=== PATIENT | female | born 1935 | race Caucasian/White ===

== ENCOUNTER 2019-12-21 13:37 | Emergency (ER) | payer MEDICARE, OTHER ==
[~2019-12-21] VITALS: Ht 157.5 cm; Wt 68.9 kg
[~2019-12-21 13:37] MED LIST: AMYL1CAP56 PO; ASPI-495 PO; BIMA2.5D5; CLON0.5T23 PO; FOLI1TAB94 PO; LISI-603 PO; LOSA1TAB39 PO; METO-357 PO; OMEP20CA15 PO; PRED25PO13 PO
--- NOTE | 2019-12-21 13:52 | NUR ---
BIBFAMILY FROM HOME TO ER BED 7. AAOX4. NOT IN RESP DISTRESS. BREATHING EVEN AND UNLABORED. AMBULATORY W/ ASSIST. CAME IN FOR BILAT LEG SWELLING. PT SPEAKS IN [place] WITH GRANDSON AT BEDSIDE FOR TRANSLATE. PT WAS REPORTED TO BE HAVING THE LEG SWELLING FOR 1-2 MONTHS. NOTED SWELLING, REDNESS AND WAS TO TOUCH. PAIN IS INTERMITENT AND NOT PRESENT AT THE TIME OF ASSESSMENT. MD MADE AWARE. AWAITNG FOR EVAL. PT PLACED ON MONITOR
[2019-12-21] MEDS ORDERED: ACETAMINOPHEN 325 MG TABLET PO ONE (15:00)
[2019-12-21] MEDS ORDERED: ACETAMINOPHEN 325 MG TABLET ONE (15:09)
--- NOTE | 2019-12-21 15:11 | NUR ---
XRAY AT BEDSIDE
--- NOTE | 2019-12-21 17:20 | NUR ---
Patient discharged to home in stable condition. Written and verbal after care instructions given. Patient verbalizes understanding of instruction.IV removed. Catheter intact and site benign. Pressure and 4x4 applied to site. No bleeding noted. Pt ambulatory with an aide of a cane w/ assist by the grandson.
[2019-12-21 17:22] VITALS: BP 108/52
== END 2019-12-21 17:22 | disposition home or self-care (01) ==
LOC: ER 13:43
DX: L03.116 Cellulitis of left lower limb (principal); L03.115 Cellulitis of right lower limb; I10 Essential (primary) hypertension; F41.9 Anxiety disorder, unspecified; E11.9 Type 2 diabetes mellitus without complications; Z79.82 Long term (current) use of aspirin; Z79.899 Other long term (current) drug therapy
CPT/HCPCS: 73630-TC; 93970-TC

== ENCOUNTER 2021-02-14 04:49 | Emergency (ER) | payer MEDICARE, OTHER ==
[~2021-02-14] VITALS: Ht 152.4 cm; Wt 73.9 kg
[~2021-02-14 04:49] MED LIST changes: -LISI-603 PO; +LISI20TA30 PO
--- NOTE | 2021-02-14 05:05 | NUR ---
PATIENT BIB DAUGHTER WITH C/O RIGHT HAND PAIN DUE TO S/P FALL THREE DAYS AGO. PATINET IS A/O X 4, RR EVEN AND UNLABORED, NO SOB NOTED. PATIENT CONNECTED TO MONITOR.
--- NOTE | 2021-02-14 05:21 | NUR ---
RAD AT BEDSIDE
[2021-02-14] MEDS ORDERED: HYDR-4275 PO (07:23)
[2021-02-14 07:28] VITALS: BP 136/68
== END 2021-02-14 07:43 | disposition home or self-care (01) ==
LOC: ER 04:56
DX: S62.001A Unspecified fracture of navicular [scaphoid] bone of right wrist, initial encounter for closed fracture (principal); S80.211A Abrasion, right knee, initial encounter; I10 Essential (primary) hypertension; E11.9 Type 2 diabetes mellitus without complications; M19.90 Unspecified osteoarthritis, unspecified site; Z79.899 Other long term (current) drug therapy; Z79.82 Long term (current) use of aspirin; W18.39XA Other fall on same level, initial encounter; Y93.89 Activity, other specified; Y92.098 Other place in other non-institutional residence as the place of occurrence of the external cause; Y99.8 Other external cause status
CPT/HCPCS: 73110; 73130-TC; 73560-TC

== ENCOUNTER 2022-05-24 11:52 | Emergency (ER) | payer MEDICARE, OTHER ==
[~2022-05-24] VITALS: Ht 157.5 cm; Wt 77.1 kg
[~2022-05-24 11:52] MED LIST changes: +HYDR-4275 PO
--- NOTE | 2022-05-24 12:10 | NUR ---
REceived pt 86 yrs female came from home accompany by amara c/o n/v for 4DAYS
--- NOTE | 2022-05-24 12:30 | NUR ---
SEEN BY DR. MASON
--- NOTE | 2022-05-24 13:00 | NUR ---
INserted ango catheter g 18 on lt ac blood drow and sent to lab blood culure blood drow and sent to lab lactete sent
[2022-05-24 13:41] LABS: BASOPHILS % (AUTO) 0.3 % (0.0-2.0); EOSINOPHILS % (AUTO) 0.3 % (0.0-6.0); HEMATOCRIT 35 % (33-45); HEMOGLOBIN 11.6 g/dL (11.5-14.8); LYMPHOCYTES # (AUTO) 1.1 K/uL (0.8-4.8); LYMPHOCYTES % (AUTO) 13.5 % (20.0-44.0); MEAN CORPUSCULAR HGB CONC 33 g/dl (31.0-36.0); MEAN CORPUSCULAR VOLUME 86 fL (82-100); MONOCYTES # (AUTO) 1.2 K/uL (0.1-1.30); MONOCYTES % (AUTO) 14.4 % (2.0-12.0); NEUTROPHILS # (AUTO) 5.8 K/uL (1.8-8.9); NEUTROPHILS % (AUTO) 71.5 % (43.0-81.0); PLATELET COUNT (AUTO) 236 K/uL (150-450); RED BLOOD CELL COUNT(AUTO) 4.11 MIL/uL (4.0-5.2); WHITE BLOOD COUNT (AUTO) 8.1 K/uL (4.3-11.0)
[2022-05-24 14:04] LABS: CALCIUM, SERUM 8.7 mg/dL (8.5-10.1); CARBON DIOXIDE 29 mmol/L (21-32); CHLORIDE 100 mmol/L (98-107); CREATININE 1.2 mg/dL (0.6-1.3); GLUCOSE 192 mg/dL (74-106); POTASSIUM 3.5 mmol/L (3.5-5.1); SODIUM SERUM 139 mmol/L (136-145); UREA NITROGEN, BLOOD 16 mg/dL (7-18)
[2022-05-24 14:16] LABS: ALANINE AMINOTRANSFERASE 446 U/L (12-78); ALBUMIN 2.9 g/dL (3.4-5.0); ALKALINE PHOSPHATASE 336 U/L (46-116); ASPARTATE AMINOTRANSFERASE 418 U/L (15-37); BILIRUBIN,DIRECT 3.5 mg/dL (0.0-0.2); BILIRUBIN,TOTAL 4.5 mg/dL (0.2-1.0); TOTAL PROTEIN, SERUM 7.2 g/dL (6.4-8.2)
[2022-05-24] MEDS ORDERED: IV NS 0.9% 250 ML IV ONE (15:24)
[2022-05-24] MEDS ORDERED: IOHEXOL-300 100 ML VIAL IV ONE (15:24)
[2022-05-24] MEDS ORDERED: MAGN400T26 PO (15:27)
[2022-05-24] MEDS ORDERED: ATOR10TA PO (15:27)
[2022-05-24] MEDS ORDERED: SITA1TAB2 PO (15:27)
[2022-05-24] MEDS ORDERED: METH2.5T14 PO (15:27)
[2022-05-24] MEDS ORDERED: FERR325T23 PO (15:27)
[2022-05-24] MEDS ORDERED: FENO48TA6 PO (15:27)
[2022-05-24] MEDS ORDERED: AMLO-212 PO (15:27)
[2022-05-24] MEDS ORDERED: BRIM5DRO2 LEFTEYE (15:27)
[2022-05-24] MEDS ORDERED: FURO20TA4 PO (15:27)
[2022-05-24] MEDS ORDERED: ASCO500T21 PO (15:27)
[2022-05-24] MEDS ORDERED: POTA10TA PO (15:27)
[2022-05-24] MEDS ORDERED: GABA300C PO (15:27)
--- NOTE | 2022-05-24 16:04 | NUR ---
COVID SWAB DONE AND SENT TO LAB
--- NOTE | 2022-05-24 16:20 | NUR ---
MOVE SHEET SUBMITTED.
--- NOTE | 2022-05-24 16:29 | NUR ---
ABDOMINALE US DONE AT BED SIDE
--- NOTE | 2022-05-24 18:30 | NUR ---
CALLED NURSING SUP FOR BED.
--- NOTE | 2022-05-24 19:38 | NUR ---
HAND OFF SAYRA BAIG
--- NOTE | 2022-05-24 19:40 | NUR ---
room 323-2
--- NOTE | 2022-05-24 19:49 | NUR ---
Patient does not wish to proceed with medical care recommended by Dr. Sheriff. Patient given information related to possible complications, up to and including , which could occur as a result of leaving the hospital at this time. Patient verbalizes understanding of risks involved due to leaving against medical advice. Patient has signed AMA form.
[2022-05-24 19:59] VITALS: BP 125/53
== END 2022-05-24 19:59 | disposition left against medical advice (07) ==
LOC: ER 11:56 → UNDOADMIN 19:50 → MED 19:50 → UNDODISIN 20:00
DX: K80.21 Calculus of gallbladder without cholecystitis with obstruction (principal); R11.2 Nausea with vomiting, unspecified; Z20.822 Contact with and (suspected) exposure to COVID-19; I10 Essential (primary) hypertension; E11.9 Type 2 diabetes mellitus without complications; Z79.84 Long term (current) use of oral hypoglycemic drugs; Z79.899 Other long term (current) drug therapy; D25.9 Leiomyoma of uterus, unspecified
CPT/HCPCS: 99285; 74177; 76705; 87426; 93005; 85025; 80048; 87040 ×2; 80076; 36415; 84484; 85730; J7050; Q9967; C9803; G0378